=== PATIENT | female | born 1980 | race Caucasian/White ===

== ENCOUNTER 2023-06-01 08:21 | Emergency (ER) | payer OTHER ==
[2023-06-01 09:18] LABS: BASOPHILS % (AUTO) 0.3 %; EOSINOPHILS % (AUTO) 0.3 %; HCT - HEMATOCRIT 43.3 % (37.0-47.0); HGB - HEMOGLOBIN 14.5 g/dL (12.0-16.0); LYMPHOCYTES # (AUTO) 1.6 10^3/uL (1.5-3.5); LYMPHOCYTES % (AUTO) 12.4 %; MEAN CORPUSCULAR HEMOGLOBIN 32.7 pg (27.0-31.0); MEAN CORPUSCULAR HGB CONC 33.5 g/dL (32.0-36.0); MEAN CORPUSCULAR VOLUME 97.5 fL (81.0-99.0); MEAN PLATELET VOLUME 9.7 fL (7.9-10.8); MONOCYTES # (AUTO) 0.6 10^3/uL (0.0-1.0); MONOCYTES % (AUTO) 4.7 %; NEUTROPHILS # (AUTO) 10.7 10^3/uL (1.5-6.6); NEUTROPHILS % (AUTO) 82.1 %; PLT - PLATELET COUNT 228 10^3/uL (130-450); RED BLOOD COUNT 4.44 10^6/uL (4.20-5.40); RED CELL DISTRIBUTION WIDTH 12.8 % (12.0-15.0); WHITE BLOOD COUNT 13.1 x10^3/uL (4.8-10.8)
[2023-06-01 09:43] LABS: ALBUMIN 4.5 g/dL (3.2-5.5); ALBUMIN/GLOBULIN RATIO 1.8 (1.0-2.2); ALKALINE PHOSPHATASE 49 IU/L (42-121); ALT ALANINE AMINOTRANSFERASE 11 IU/L (10-60); AST ASPARTATE AMINOTRANSFERASE 11 IU/L (10-42); BILIRUBIN,TOTAL 0.6 mg/dL (0.2-1.0); BUN - BLOOD UREA NITROGEN 12 mg/dL (6-20); CALCIUM 9.7 mg/dL (8.5-10.3); CARBON DIOXIDE - CO2 28 mmol/L (21-32); CHLORIDE 103 mmol/L (101-111); CREATININE 0.7 mg/dL (0.6-1.3); GFR - MDRD 91 (>89); GLUCOSE 124 mg/dL (74-104); LIPASE 48 U/L (11-82); POTASSIUM 4.5 mmol/L (3.5-4.5); SODIUM 136 mmol/L (135-145)
[2023-06-01 09:44] LABS: TROPONIN I HIGH SENSITIVITY < 2.3 ng/L (2.3-14.8)
--- NOTE | 2023-06-01 09:49 | XRAY Report ---
PROCEDURE: Chest 1 View X-Ray INDICATIONS: Chest pain TECHNIQUE: One view of the chest was acquired. COMPARISON: None. FINDINGS: Surgical changes and devices: None. Lungs and pleura: No pleural effusions or pneumothorax. Lungs are clear. Mediastinum: Mediastinal contours appear normal. Heart size is normal. Bones and chest wall: No suspicious bony lesions. Overlying soft tissues appear unremarkable. IMPRESSION: No acute cardiopulmonary process. Reviewed by: Jolie Kirby MD on 06/01/2023 9:47 AM PDT Approved by: Jolie Kirby MD on 06/01/2023 9:47 AM PDT Station ID: [id number]
--- NOTE | 2023-06-01 10:33 | ED Physician Documentation ---
PD HPI CHEST PAIN - Stated complaint Stated Complaint: UPPER BACK PX - Chief complaint Chief Complaint: Cardiac - History obtained from History obtained from: Patient - Additional information Additional information: The pt comes to the ED with CC of upper back pain between bilateral shoulder blades that started about 18 hours ago. She states it hurts to move certain ways, breathe deeply, or assume certain positions. No cough, SOB, fevers or chills. Pt had some chest tightness this morning when she awakened, too. No other complaints at this time. PD PAST MEDICAL HISTORY - Past Medical History Past Medical History: No - Past Surgical History Past Surgical History: No - Present Medications Home Medications: Ambulatory Orders Medication Instructions Recorded Confirmed Fluoxetine HCl [Prozac] 40 mg PO DAILY 06/01/23 06/01/23 HYDROcod/ACETAM 5/325 [Vardaman 5/325] 1 - 2 tablet PO Q6H PRN #6 tablet 06/01/23 Pantoprazole [Protonix] 40 mg PO DAILY 06/01/23 06/01/23 - Allergies Allergies/Adverse Reactions: Allergies Allergy/AdvReac Type Severity Reaction Status Date / Time No Known Drug Allergies Allergy Verified 06/01/23 08:46 - Social History Does the pt smoke?: Yes Smoking Status: Current every day smoker PD ED PE NORMAL - Vitals Vital signs reviewed: Yes - General General: Alert and oriented X 3, No acute distress, Well developed/nourished - HEENT HEENT: Atraumatic, PERRL, EOMI, Moist mucous membranes - Neck Neck: Supple, no meningeal sign - Cardiac Cardiac: RRR, No murmur, Strong equal pulses - Respiratory Respiratory: No respiratory distress, Clear bilaterally - Abdomen Abdomen: Soft, Non tender, Non distended - Back Back: Other (TTP of intrascapular musculature. TTP anterior CW) - Derm Derm: Normal color, Warm and dry, No rash - Extremities Extremities: No deformity - Neuro Neuro: Alert and oriented X 3 - Psych Psych: Normal mood, Normal affect Results - Vitals Vitals: Oxygen O2 Source Room air - EKG (time done) 0851 EKG releavant findings:: EKG personally interpreted by author of this note. Relevant findings are: Rate: Rate (enter#) (83) Rhythm: NSR, LAE Maceo: Normal Intervals: Normal KS QRS: Normal Ischemia: Non specific changes Compare to prior EKG: Old EKG unavailable Computer interpretation: Agree with computer - Labs Labs: Laboratory Tests 06/01/23 06/01/23 06/01/23 09:14 09:14 09:14 WBC 13.1 H RBC 4.44 Hgb 14.5 Hct 43.3 MCV 97.5 MCH 32.7 H MCHC 33.5 RDW 12.8 Plt Count 228 MPV 9.7 Neut # (Auto) 10.7 H Lymph # (Auto) 1.6 Otoe # (Auto) 0.6 Eos # (Auto) 0.0 Baso # (Auto) 0.0 Absolute Nucleated RBC 0.00 Nucleated RBC % 0.0 D-Dimer < 200.0 L Sodium 136 Potassium 4.5 Chloride 103 Carbon Dioxide 28 Anion Gap 5.0 L BUN 12 Creatinine 0.7 Estimated GFR (MDRD) 91 Glucose 124 H Calcium 9.7 Total Bilirubin 0.6 AST 11 ALT 11 Alkaline Phosphatase 49 Troponin I High Sens < 2.3 L Total Protein 7.0 Albumin 4.5 Globulin 2.5 Albumin/Globulin Ratio 1.8 Lipase 48 - Rads (name of study) chest XR Relevant Findings:: Final report received, See rad report (nad) PD Medical Decision Making - ED course Complexity details: reviewed results, re-evaluated patient, considered differential, d/w patient ED course: The pt was worked up with labs, including CBC, troponin, d-dimer and ER abd panel, as well as CXR and EKG, all of which were unremarkable. The pt's sx and findings were most consistent with a musculoskeletal source. We have discussed follow-up, as well as the usual indications for return. Departure - Departure Disposition: 01 Home, Self Care Clinical Impression: Acute thoracic back pain Qualifiers: Back pain laterality: left Qualified Code(s): M54.6 - Pain in thoracic spine Condition: Stable Instructions: ED Neck Back Pain General Prescriptions: HYDROcod/ACETAM 5/325 [Vardaman 5/325] 1 - 2 tablet PO Q6H PRN #6 tablet PRN Reason: Pain Comments: Your labs, EKG, and x-ray all look good. There is no evidence of a serious or emergent cause of your pain today. Your prescription has been electronically transmitted to the [facility] pharmacy in [place]. Please follow-up with your primary doctor for further concerns. Forms: PCP List Discharge Date/Time: 06/01/23 10:59
[2023-06-01 11:08] VITALS: BP 124/82; O2SAT 100
== END 2023-06-01 10:59 | disposition home or self-care (01) ==
LOC: ED 08:21
DX: M54.6 Pain in thoracic spine (principal); F17.200 Nicotine dependence, unspecified, uncomplicated; Z79.899 Other long term (current) drug therapy
CPT/HCPCS: 36415; 80053; 83690; 84484; 85025; 85379; 93005; 99284

== ENCOUNTER 2024-05-11 07:42 | Outpatient (CLI) | payer OTHER ==
--- NOTE | 2024-05-12 10:47 | XRAY Report ---
PROCEDURE: Lumbar Spine 2-3V INDICATIONS: LOW BACK PX,ACUTE TECHNIQUE: 3 views of the lumbar spine were acquired. COMPARISON: None. FINDINGS: Surgical change: None. Bones: 5 [id number] vertebrae are present. Trace retrolisthesis of L3 on L4 and L2 on L3. No ve rtebral body compression fractures. No suspicious bony lesions. Mild multilevel disc height loss. In ferior lumbar facet arthropathy. Soft tissues: Overlying bowel gas pattern is normal. No suspicious soft tissue calcifications. IUD is visualized. IMPRESSION: No acute fracture or traumatic subluxation. Mild multilevel degenerative changes and inferior lumbar facet arthropathy. Trace L3-L4 and L2-L3 retrolisthesis. Reviewed by: Jolie Kirby MD, PhD on 05/12/2024 10:45 AM PDT Approved by: Jolie Kirby MD, PhD on 05/12/2024 10:45 AM PDT Station ID: [id number]
--- NOTE | 2024-05-13 00:26 | XRAY Report ---
PROCEDURE: Thoracic Spine 2V INDICATIONS: LOW BACK PX,ACUTE TECHNIQUE: 3 views of the thoracic spine were acquired. COMPARISON: None. FINDINGS: Bones: No fractures or dislocations. No suspicious bony lesions. 12 pairs of ribs are noted, and a ppear intact where visualized. Soft tissues: No paravertebral stripe thickening. IMPRESSION: No acute bony abnormality. No significant degenerative change. Reviewed by: Jolie Kirby MD, PhD on 05/13/2024 12:25 AM PDT Approved by: Jolie Kirby MD, PhD on 05/13/2024 12:25 AM PDT Station ID: [id number]
== END 2024-05-11 07:43 | disposition home or self-care (01) ==
LOC: DI 07:42
PROVIDERS: ATTEND Family Medicine
DX: M47.816 Spondylosis without myelopathy or radiculopathy, lumbar region (principal); M43.16 Spondylolisthesis, lumbar region